=== PATIENT | male | born 1970 | race Caucasian/White ===

== ENCOUNTER 2021-05-09 21:57 | Emergency (ER) | payer OTHER ==
[~2021-05-09] VITALS: Ht 182.9 cm; Wt 81.0 kg
--- NOTE | 2021-05-09 22:23 | EKG ---
[facility] [address] [place] [address] Test Date: 2021-05-09 Test Time: 22:08:48 Pat Name: PIPE RIOS Department: Room: Gender: M Nurse Anesthetist: : 1970 Requested By: JOHN RUSHING Order Number: [id number] Reading MD: Measurements Intervals [place] Rate: 52 P: 38 FL: 210 QRS: -26 QRSD: 102 T: 8 QT: 420 QTc: 393 Interpretive Statements No previous ECG available for comparison
[2021-05-09 22:35] LABS: BASO # 0.1 x10^3/uL (0.0-0.2); BASO % 1 % (0-3); EOS # 0.1 x10^3/uL (0.0-0.7); EOS % 1 % (0-3); HEMATOCRIT 37.5 % (39.0-53.0); HEMOGLOBIN 13.5 g/dL (13.0-17.5); LYMPH # 1.5 x10^3/uL (1.0-4.8); LYMPH % 15 % (24-48); MEAN CORPUSCULAR HEMOGLOBIN 32 pg (25-35); MEAN CORPUSCULAR HGB CONC 36 g/dL (31-37); MEAN CORPUSCULAR VOLUME 89 fL (79-100); MONO # 0.6 x10^3/uL (0.0-1.1); MONO % 6 % (0-9); NEUT # 8.1 x10^3/uL (1.8-7.7); NEUT % 77 % (31-73); PLATELET COUNT 282 x10^3/uL (140-400); RED CELL DISTRIBUTION WIDTH 12.5 % (11.5-14.5); WHITE BLOOD COUNT 10.5 x10^3/uL (4.0-11.0)
--- NOTE | 2021-05-09 22:43 | PHYS DOC ---
Past Medical History Additional Past Medical Histor: prediabetic, RAINA Past Surgical History: Other Smoking Status: Never Smoker Alcohol Use: None General Adult EDM: Chief Complaint: CHEST PAIN HPI: HPI: 51-year-old male with no significant cardiac history presents to the emergency department complaining of about 4 hours or so of right-sided stabbing chest pain, he says that it is located right over the right chest wall, says that it was initially intense and stabbing but it then subsided, not associated with any shortness of breath, nausea, vomiting or diaphoresis. Patient was seen in the ER he says 5 months ago at [facility] and had some tests and he says "they did some ultrasounds and I think you may have seen a paediatric physiotherapist but they did not do any stress test". Denies any severe pain at this time, says pain is about a 4/10, no known history of thromboembolism, no smoking, no cough, no loss of taste or smell, no vomiting or diarrhea Review of Systems: Review of Systems: General: no fevers , no chills, no general weakness Eyes: no blurred vision, no diplopia Skin: no rashes Neck: no swelling, no neck stiffness, no neck pain Heme: no bleeding, no lymph node enlargement Ear/Nose/Throat: No sore throat, no runny nose, no hearing loss, no difficulty swallowing Cardiovascular: +Chest pain, no palpitations Respiratory: No dyspnea, no cough, no hemoptysis Gastrointestinal: No abdominal pain, no nausea, no vomiting, no diarrhea, no blood in stool Genitourinary: no dysuria, no hematuria Musculoskeletal: no back pain, no leg pain, no arm pain, no arthralgia Neurologic: no headaches, no dizziness, no focal numbness/tingling, no focal weakness Psych: no depression, no anxiety, no SI/HI *All review of systems are negative other than what is noted above Heart Score: C/O Chest Pain: Yes HEART Score for Chest Pain: HEART Score for Chest Pain Response (Comments) Value History Slighlty/Non-Suspicious 0 ECG Normal 0 Age >45 - < 65 1 Risk Factors 1 or 2 Risk Factors 1 Troponin < Normal Limit 0 Total 2 Risk Factors: Risk Factors: DM, Current or recent (<one month) smoker, HTN, HLP, family history of CAD, obesity. Risk Scores: Score 0 - 3: 2.5% MACE over next 6 weeks - Discharge Home Score 4 - 6: 20.3% MACE over next 6 weeks - Admit for Clinical Observation Score 7 - 10: 72.7% MACE over next 6 weeks - Early Invasive Strategies Family History: Family History: family hx of cardiac disease in parents in 60's and 70's Allergies: Allergies: Allergies Coded Allergies Type Severity Reaction Last Updated Verified No Known Drug Allergies 05/09/21 No Physical Exam: PE: Gen-well appearing, no acute distress Head: Normocephalic/Atraumatic ENT: atraumatic, PERRLA, EOMI, oropharynx clear Neck: supple, full ROM/strength, no JVD, no nuchal rigidity Lungs: no distress, speaks in full sentences, Clear to auscultation bilaterally CV: reg rate, rhythm, no murmus/rubs/gallops, peripheral pulses equal in all extremities Abdomen: soft/nontender, no guarding/rebound tenderness, no rigidity, non distended, normoactive bowel sounds Musculoskeletal: full ROM/strength in all extremities, atraumatic, no swelling Back: full range of motion/strength Skin: intact, no rashes Lymph: no gross HUMBERTO Neuro: alert and oriented x 4, CN 2-12 grossly intact, Motor strength is 5/5 in all extremities, no focal sensory deficits, no focal ataxia, ambulatory with steady gait Psych: normal mood/affect Current Patient Data: Labs: Laboratory Tests Test 05/09/21 22:32 White Blood Count 10.5 x10^3/uL (4.0-11.0) Red Blood Count 4.20 x10^6/uL (4.30-5.70) L Hemoglobin 13.5 g/dL (13.0-17.5) Hematocrit 37.5 % (39.0-53.0) L Mean Corpuscular Volume 89 fL (79-100) Mean Corpuscular Hemoglobin 32 pg (25-35) Mean Corpuscular Hemoglobin Concent 36 g/dL (31-37) Red Cell Distribution Width 12.5 % (11.5-14.5) Platelet Count 282 x10^3/uL (140-400) Neutrophils (%) (Auto) 77 % (31-73) H Lymphocytes (%) (Auto) 15 % (24-48) L Monocytes (%) (Auto) 6 % (0-9) Eosinophils (%) (Auto) 1 % (0-3) Basophils (%) (Auto) 1 % (0-3) Neutrophils # (Auto) 8.1 x10^3/uL (1.8-7.7) H Lymphocytes # (Auto) 1.5 x10^3/uL (1.0-4.8) Monocytes # (Auto) 0.6 x10^3/uL (0.0-1.1) Eosinophils # (Auto) 0.1 x10^3/uL (0.0-0.7) Basophils # (Auto) 0.1 x10^3/uL (0.0-0.2) Laboratory Tests 05/09/21 22:32 Vital Signs: Vital Signs Date Time Temp Pulse Resp B/P (MAP) Pulse Ox O2 Delivery O2 Flow Rate FiO2 05/09/21 22:31 98.7 62 17 137/82 98 Room Air 98.7 EKG: EKG: [] Twelve-lead EKG was performed at 10:08 PM: Normal sinus rhythm, rate is 52, nonischemic appearing EKG with otherwise normal axis and intervals Radiology/Procedures: Radiology/Procedures: [] Course & Med Decision Making: Course & Med Decision Making Pertinent Labs and Imaging studies reviewed. (See chart for details) [] 51-year-old male comes to the emergency department complaining of atypical chest pain, EKG is normal, no known cardiac disease per history, pertinent differential diagnosis includes but not limited to GERD/gastritis, costoch ondritis, cholelithiasis, anxiety, unlikely ACS, PE, dissection, pneumothorax, pneumonia unlikely, heart score is a 2 which is low risk for major adverse cardiac events, low risk for PE per Wells criteria complaint this time is dysuria cardiac biomarkers 3 hours apart in this otherwise low risk patient, chest x-ray, D-dimer level to really repeat is otherwise low risk patient, will closely monitor, reevaluate examined him during his work-up in the emergency department and determine the best course of action as data becomes available re eval at 212am: Pain is resolved, abdomen nontender, the work appears negative and 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 I do believe that he is likely having some g astritis or ulcerative disease, nothing that showed up on the CT scan, I do believe he is stable for discharge for close outpatient gastroenterology and cardiology follow-up Patient was seen in the ED for atypical chest/epigastric pain that improved in the emergency department, there is no apparent evidence of any emergency medical pathology at this time, patient was advised follow-up with their primary care provider /physician in the next 24-48 hours, I also referred him to gastroenterology and cardiology and advised him to get follow-up there within 72 hours as well, and to return to the ED before then if any new or worsening / concerning symptoms had developed. All questions and concerns were addressed at time of disposition Dragon Disclaimer: Dragon Disclaimer: This electronic medical record was generated, in whole or in part, using a voice recognition dictation system. Departure Departure Impression: Primary Impression: Atypical chest pain Disposition: HOME / SELF CARE / HOMELESS Condition: IMPROVED Referrals: KVNG ALLEN MD, SCOTT S MD Patient Instructions: Chest Pain (Nonspecific), Gastritis, Adult Additional Instructions: My suspicion is that you haves gastritis or even a small gastric ulcer, the tests we ran here were okay, out of an bundance of caution I recommend that that you get a stress test from cardiology from Dr. Allen in the next 72 hours, and also I recommend you follow-up with gastroenterology in the same [facility] and you should get an endoscopy, I am going to give him prescription of some medicine similar to what we gave you in the ER, bring him back to the ER before follow-up if any new or worsening/concerning symptoms develop Scripts Mag Hydrox/Aluminum Hyd/Simeth (Maalox Advanced Suspension) 355 Ml Oral.susp 355 ML PO TID PRN for PAIN for 7 Days, #355 ML Prov: JOHN RUSHING MD 05/10/21 Sucralfate (CARAFATE) 1 Gm Tablet 1 TAB PO QID PRN for PAIN for 8 Days, #30 TAB 0 Refills Prov: JOHN RUSHING MD 05/10/21 Pantoprazole Sodium (PROTONIX) 20 Mg Tablet. 1 TAB PO DAILY, #30 TAB Prov: JOHN RUSHING MD 05/10/21 JOHN RUSHING MD May 09, 2021 22:43
[2021-05-09 22:46] LABS: GFR 78.5; POTASSIUM 3.8 mmol/L (3.5-5.1)
[2021-05-09 22:52] LABS: ALBUMIN 3.7 g/dL (3.4-5.0); ALBUMIN/GLOBULIN RATIO 1.4 (1.0-1.7); TOTAL BILIRUBIN 0.3 mg/dL (0.2-1.0); TOTAL PROTEIN 6.3 g/dL (6.4-8.2)
--- NOTE | 2021-05-09 23:02 | RAD ---
XR CHEST 1V INDICATION: cp . COMPARISON STUDY: None. FINDINGS: Lungs: Normal lung volume. No pulmonary mass or consolidation. The tracheobronchial tree and hilar st ructures are normal. Pleura: No pleural effusion or pneumothorax. Heart and Mediastinum: The cardiomediastinal silhouette is normal. The great vessels of the thorax ar e normal. IMPRESSION: No acute cardiopulmonary process. Electronically signed by: Salazar Coronado MD (05/09/2021 11:00 PM) [facility]OSPITALConrado
[2021-05-09] MEDS ORDERED: LIDO:MAALOX 1:1 20 ML SINGLE DOSE. SWSW ONE (23:45)
[2021-05-09] MEDS ORDERED: KETOROLAC 30 MG/ML VIAL. IVP ONE (23:45)
[2021-05-10] MEDS ORDERED: CONTRAST GIVEN. MC PRN (00:45)
[2021-05-10] MEDS ORDERED: IOHEXOL 300 MG/ML 100ML VIAL. IV ONE (01:00)
--- NOTE | 2021-05-10 01:33 | RAD ---
PQRS Compliance Statement: One or more of the following individualized dose reduction techniques were utilized for this examinat ion: 1. Automated exposure control 2. Adjustment of the mA and/or kV according to patient size 3. Use of iterative reconstruction technique CT ABDOMEN+PELVIS W Clinical Indication: Reason: RUQ pain; Comparison: None. Technique: Helical CT imaging of the abdomen and pelvis is performed after 75 cc of Omnipaque 300 IV contrast. Oral contrast not administered. Findings: Mild bilateral dependent atelectasis. Cardiac size is normal. The liver, gallbladder, spleen, pancreas, adrenal glands, abdominal aorta, and kidneys are normal. No gastric wall thickening. There is no dilated small bowel. The appendix is normal. There is no colo n wall thickening. There is scattered stool in the colon. No abdominal adenopathy or free fluid. The urinary bladder is normal. The prostate and seminal vesicles are normal. No pelvic free fluid. No inguinal adenopathy. No acute bone abnormality. Mild grade 1 retrolisthesis of L4 on L5. There is left os acetabuli. IMPRESSION: No acute abdominal or pelvic abnormality. Electronically signed by: Elgin Alvarado MD (05/10/2021 1:30 AM) [facility] CENTERJESSICA
[2021-05-10] MEDS ORDERED: MAG355OR11 PO (02:16)
[2021-05-10] MEDS ORDERED: SUCR1TAB35 PO (02:16)
[2021-05-10] MEDS ORDERED: PANT20TA2 PO (02:16)
[2021-05-10 02:23] VITALS: BP 144/72
== END 2021-05-10 02:35 | disposition home or self-care (01) ==
LOC: ER 21:57
DX: R07.89 Other chest pain (principal)
CPT/HCPCS: 36415; 71045; 74177; 80053; 83690; 83880; 84484; 85025; 85379; 93005; 96374; 99285; J1885; Q9967

== ENCOUNTER → 2021-05-31 | Outpatient (CLI) | payer OTHER ==
[2021-05-10 02:23] VITALS: BP 144/72
[~2021-05-31] MED LIST: MAG355OR11 PO; PANT20TA2 PO; SUCR1TAB35 PO
--- NOTE | 2021-05-31 08:42 | RAD ---
EXAMINATION: US ABDOMEN LIMITED INDICATION: 51 years, Male, abdominal pain. COMPARISON: 05/10/2021 TECHNIQUE: Grayscale, color Doppler and limited spectral Doppler images of the right upper quadrant w ere obtained. FINDINGS: LIVER: SIZE (LENGTH): 17.2 cm. ECHOGENICITY: Normal. PARENCHYMA: Homogeneous echotexture. No discrete focal lesion. INTRAHEPATIC BILE DUCTS: Nondilated. PORTAL VEIN: Patent with normal hepatopedal flow. GALLBLADDER: GALLBLADDER WALL THICKNESS: 2 mm MORPHOLOGY: Normal morphology. No pericholecystic free fluid. LUMEN: Normal. COMMON BILE DUCT DIAMETER: 6 mm RIGHT KIDNEY: MEASURES: 10.9 cm in length. MORPHOLOGY/PARENCHYMA: Normal corticomedullary differentiation with no shadowing calculus or discrete masses. COLLECTING SYSTEM: No hydronephrosis. PANCREAS: Obscured by overlying bowel gas. OTHER: RETROPERITONEUM, INFERIOR VENA CAVA: Normal caliber. AORTA: Obscured by overlying bowel gas. FLUID:No free fluid. IMPRESSION: Unremarkable right upper abdomen ultrasound. Electronically signed by: Vicente Meraz MD (05/31/2021 8:39 AM) [id number]
--- NOTE | 2021-05-31 12:32 | RAD ---
EXAM: Nuclear hepatobiliary scan. HISTORY: Pain. TECHNIQUE: Following intravenous administration of 5 mCi Tc 99m Choletec, anterior images of the abdo men were obtained at five minute intervals through one hour. Subsequently, 8 ounces Ensure was ingest ed and additional images to assess gallbladder ejection fraction were obtained. FINDINGS: There is prompt radiotracer uptake by the liver. No focal defect is seen. There is normal e xcretion into the biliary tree. The gallbladder is visualized within 20 minutes and there is free mara w into the duodenum. The gallbladder ejection fraction is 10 percent. IMPRESSION: Severely decreased gallbladder ejection fraction of 10 percent. Electronically signed by: Samantha Briones MD (05/31/2021 12:30 PM) [id number]
== END ==
LOC: US 07:59
PROVIDERS: ATTEND Internal Medicine Gastroenterology
DX: R10.11 Right upper quadrant pain (principal); R07.89 Other chest pain
CPT/HCPCS: 76705; 78227; A9537

== ENCOUNTER 2021-06-25 11:33 | Day surgery (SDC) | payer OTHER ==
[~2021-06-25] VITALS: Ht 175.3 cm; Wt 87.0 kg
[~2021-06-25 11:33] MED LIST changes: +ACETAMINOPHEN 500 MG TABLET PO PRN; +DEXAMETHASONE SOD PHOS 4 MG/ML VIAL ONE; +GLYCOPYRROLATE 1 MG/5 ML VIAL. ONE; +HYDROmorphone 2 MG/ML VIAL IVP PRN; +IV RINGERS,LACTATED 1000ML 1,000 ML IV SCH; +LIDOCAINE 2% PF 5 ML VIAL. ONE; +MIDAZOLAM HCL/PF 2 MG/2 ML VIAL. ONE; +MORPHINE SULFATE 2 MG/ML INJ. IVP PRN; +NEOSTIGMINE METHYLSULFATE 5 MG/5 ML SYRINGE. ONE; +ONDANSETRON PF 4 MG/2 ML VIAL. ONE; +PROCHLORPERAZINE 10 MG/2 ML VIAL. IVP PRN; +PROPOFOL 10 MG/ML (20ML) VIAL. IV ONE; +fentaNYL PF VIAL 100 MCG/2 ML VIAL IVP PRN; +fentaNYL PF VIAL 100 MCG/2 ML VIAL ONE
[2021-06-25] MEDS ORDERED: METF500T16 PO (11:52)
[2021-06-25 11:53] VITALS: BP 130/71
[2021-06-25] MEDS ORDERED: SCOPOLAMINE 1.5MG PATCH. TD ONE (12:00)
[2021-06-25] MEDS ORDERED: INSULIN LISPRO 100 UNIT/ML 3ML VIAL for OP,RR ONLY. SQ ONE (12:10)
[2021-06-25] MEDS ORDERED: INSULIN LISPRO 100 UNIT/ML 3ML VIAL for OP,RR ONLY. SQ PRN (12:15)
[2021-06-25] MEDS ORDERED: BUPIVACAINE-EPI 0.5%-1:200000 MPF 30 ML VIAL. ONE (12:50)
[2021-06-25] MEDS ORDERED: FAMOTIDINE 20 MG/2 ML VIAL ONE (12:52)
[2021-06-25] MEDS ORDERED: KETAMINE HCL IN NACL, ISO-OSM 50 MG/5 ML SYRINGE ONE (12:55)
[2021-06-25] MEDS ORDERED: BUPIVACAINE-EPI 0.5%-1:200000 MPF 30 ML VIAL. INJ ONE (13:12)
[2021-06-25] MEDS ORDERED: ePHEDrine PF IN SALINE 50 MG/10 ML SYRINGE. IV ONE (13:19)
[2021-06-25] MEDS ORDERED: PROPOFOL 10 MG/ML (20ML) VIAL. IV ONE (13:26)
--- NOTE | 2021-06-25 13:35 | PDOC4 ---
Operative Note Operative Note Date: June 252020 at 1330 Preoperative diagnosis: Biliary dyskinesia Postoperative diagnosis: Same Procedure: Laparoscopic cholecystectomy with fluorescein cholangiography Surgeon: Harley Specimen: Gallbladder Dictation: Patient is a 51-year-old male with right upper quadrant abdominal pain and a HIDA scan showing ejection fraction of only 10%. Procedure of laparoscopic cholecystectomy was explained to the patient detail risk benefits were also discussed including bleeding infection injury to intra-abdominal contents possible necessitating further open operations alternatives to this procedure also discussed with the patient who seemed to understand and gave a verbal written consent had the procedure performed. Patient was taken to the operating room placed in the supine position general anesthesia was initiated o nce patient was sleeping intubated his abdomen was prepped and draped usual sterile fashion using ChloraPrep. Area just below the umbilicus was injected with quarter percent Marcaine with epinephrine incision was made 11 blade scalpel and a varies needle was placed within the abdomen creating pneumoperitoneum once this was complete the millimeter port was placed in a 5 mm camera was placed within the abdomen abdomen was inspected it was noted that the gallbladder is actually to the left of the falciform ligament. A 5 mm port was placed in the epigastrium a 5 mm ports placed in the right midabdomen a 5 mm port was placed in the right lateral abdomen. The dome of the gallbladder is grasped retracted cephalad the infundibulum the gallbladder is grasped retracted laterally exposing the triangle adherent tissues the triangle were taken down with blunt dissection exposing the cystic duct at this point the fluorescein was visualized which showed good dye within the cystic duct and flow into the common without evidence of obstruction and anatomy well visualized. The cystic duct was doubly clipped and transected the cystic artery was doubly clipped and transected and the gallbladder was taken off the liver with hook electrocautery placed in Endo Catch bag moving the umbilicus the right upper quadrant was irrigated and suctioned dry hemostasis deemed be appropriate the pneumoperitoneum was reduced all ports were removed the fascial defect at the umbilicus was closed with a [id number] 0 Vicryl suture and the skin was reapproximated all port sites for subcuticular Monocryl Mastisol Steri-Strips and island dressings were applied. Patient was awakened and extubated in the operating room taken to recovery in stable condition all sponge instrument needle counts listed as correct estimated blood loss 10 mL EMMA PASCUAL MD Jun 25, 2021 13:35
[2021-06-25] MEDS ORDERED: OXYC-325 PO (13:36)
--- NOTE | 2021-06-25 13:39 | DISCH ---
DISCHARGE INSTRUCTIONS Condition on Discharge Condition on Discharge: Stable Activity After Discharge Activity Instructions for Disc: Activity as tolerated, Avoid exertion Other activity instructions: No lifting more than 20 pounds for 2 weeks Diet after Discharge Diet after Discharge: Low Fat Wound Incision Care Other wound/incision instructi: Carmen shower in 24-hour Contacting the after DC Call your doctor for: If your condition worsens Follow-Up Follow up with: Dr. Pascual in 2-week EMMA PASCUAL MD Jun 25, 2021 13:38
[2021-06-25] MEDS ORDERED: fentaNYL PF VIAL 100 MCG/2 ML VIAL ONE (14:20)
[2021-06-25] MEDS: fentaNYL PF VIAL 100 MCG/2 ML VIAL IVP PRN ×2 (14:23→14:46)
[2021-06-25] MEDS ORDERED: oxyCODONE/APAP 5/325 1 TAB TABLET PO ONE (14:30)
[2021-06-25 14:51] VITALS: BP 118/73
--- NOTE | 2021-06-26 16:17 | PATHOLOGY ---
[facility] Accession Number: [id number] . 01 Material submitted: . gallbladder - GALLBLADDER AND CONTENTS . 01 Clinical history: . BILIARY DYSKINESIA LAP CHOLECYSTECTOMY . 02 Diagnosis: Gallbladder, laparoscopic cholecystectomy: - Cholelithiasis. - Chronic cholecystitis. - Small segment of attached pancreatic tissue present. (JPM:rn dialysis; 06/26/2021) R 06/26/2021 1027 Local . 02 Comment: There is no evidence of malignancy. (JPM:rn dialysis; 06/26/2021) . 02 Electronically signed: . Matteo Jovel MD, Pathologist NPI- [id number] . 01 Gross description: . Fixative: Formalin Labeled: Gallbladder and contents Specimen received: Previously disrupted gallbladder Dimensions: 5.6 x 2.9 x 2.1 cm Serosa: Green-hung and smooth Lymph node: Present Mucosa: Velvety, bile-stained Average wall thickness: Up to 0.3 cm Calculi: Present displaying a bright yellow, nodular appearance Abnormalities: None identified . A1- Hotel Clerk body, fundus, and the cystic duct margin. A2- Possible lymph node, bisected ([facility]; 06/25/2021) NRI/NRI 06/25/2021 2111 Local . 02 Pathologist provided ICD-10: K80.10 . 02 CPT . 616082 Specimen Comment: A courtesy copy of this report has been sent to [phone] Specimen Comment: [id number] Specimen Comment: Report sent to / DR CARTER Performed at: 01 [facility] [address], [place], [place] [id number] MD Jim Nicolas MD Phone: [phone] Performed at: 02 [facility] [address], [place] [id number] MD Matteo Jovel MD Phone: [phone]
== END 2021-06-25 15:25 | disposition home or self-care (01) ==
LOC: SURG 11:33
PROVIDERS: ATTEND Surgery
DX: K80.10 Calculus of gallbladder with chronic cholecystitis without obstruction (principal); E11.9 Type 2 diabetes mellitus without complications; G47.30 Sleep apnea, unspecified; M19.90 Unspecified osteoarthritis, unspecified site; Z79.899 Other long term (current) drug therapy; Z72.89 Other problems related to lifestyle; Z88.0 Allergy status to penicillin; Z98.890 Other specified postprocedural states
CPT/HCPCS: 47562; 82962; 88304; A4930; J1100; J1815; J1956; J2250; J2405; J2704; J2710; J3010; J3490; A4657